=== PATIENT | male | born 1965 | race Caucasian/White ===

== ENCOUNTER → 2018-04-07 | Outpatient (CLI) | payer OTHER ==
[~2018-04-07] MED LIST: ASPIR 8181 M1 PO; ASPIRIN325 PO; CRESTOR10 MG PO; CRESTOR40 MG PO; LIPITOR 20 MG T20 M1 PO; LISINOPRIL10 MG PO; MEDROLDOSEPACK PO; MOBIC15 MG PO; PLAVIX 75 MG TA75 M1 PO; ZETIA10 MG PO
--- NOTE | 2018-04-14 12:26 | TST ---
[place] [address] TREADMILL STRESS TEST Name: ZOILA SIMPSON Room: [facility]#: [id number] Admission: 04/07/18 Attend Phys: Caleb Ro MD Discharge: Date of : 61 Date of Service: 04/07/18 1611 Report #: [id number] THIS REPORT FOR: //name// CC: Paulino Ro MD [facility] DATE OF SERVICE: 04/07/2018 Resting 12-lead electrocardiogram demonstrates a sinus rhythm and is within normal limits. The patient exercised for 12 minutes and 58 seconds according to a standard Tanvir protocol, achieving 13.84 METs. He stopped because of shortness of breath and fatigue, but denied chest pain. Resting heart rate was 67 with a peak of 167, 100% of the age predicted maximum. Blood pressure was 130/83 at rest, increasing to 202/73, peak exercise and following to 147/80 during the post-exercise phase. There were no ischemic ST-T alterations noted during or post-exercise. There were occasional PVCs with rare ventricular couplet; there were no examples of ventricular tachycardia and no significant supraventricular arrhythmias. IMPRESSION: 1. Negative treadmill exercise test for provocation of ischemic ST-T alterations. 2. No chest pain provoked by exertion. 3. Appropriate heart rate and systolic blood pressure responses to exercise. 4. Occasional premature ventricular contractions with a rare ventricular couplet during exercise; there were no examples of ventricular tachycardia. 5. Excellent level of fitness for age. <ELECTRONICALLY SIGNED> By: Zhou Gomez MD, FACC 04/14/18 1226 1611 1917 Zhou Gomez MD, FACC /nt
== END ==
LOC: M.ULTRA 12-30 16:45 → M.CRD 12:16
DX: I25.10 Atherosclerotic heart disease of native coronary artery without angina pectoris (principal); I65.22 Occlusion and stenosis of left carotid artery

== ENCOUNTER → 2018-05-24 | Outpatient (CLI) | payer OTHER ==
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
== END ==
LOC: M.PC 08:21
DX: M54.5 Low back pain (principal); M54.2 Cervicalgia

== ENCOUNTER → 2018-06-14 | Outpatient (CLI) | payer OTHER ==
--- NOTE | ~2018-06-14 | PAINCON ---
[address] [address] PAIN MANAGEMENT CONSULTATION Name: ZOILA SIMPSON Room: [facility].#: [id number] Admission: 06/14/18 Attend Phys: Myles Corley MD Discharge: Date of : 61 Report #: [id number] THIS REPORT FOR: //name// CC: Paulino Corley DATE OF SERVICE: 06/14/2018 FOLLOWUP HISTORY: The patient is a 52-year-old gentleman who has been seen in the pain clinic because of cervical radiculopathy as well as lumbar radiculopathy. At our initial visit, his was provided with a Medrol Dosepak. He was having pain and discomfort in his shoulders with pain that radiates down into his hands and into the middle, ring and small finger. He has noticed an improvement in that pain and discomfort since the use of the Medrol Dosepak. He did not have any problems with it. He is having left numbness and tingling. His arms are not falling asleep as often as they were. At this juncture, he feels that the pain is most problematic is no longer that in his neck, but that in his low back area with pain that radiating down the posterior portion of his legs. It is more problematic on the right than left. He rates his pain as a 4/10. He does use ibuprofen p.r.n. The patient was given a script for Mobic. He declined its use secondary to his nonsteroidal anti-inflammatory properties and the possibility of cardiac events. He does have a stent in place. He has a family history of cardiac problems. He has returned today and would like to proceed with an epidural in the low back area because of the pain. ALLERGIES: No known drug allergies. MEDICATIONS: Aspirin 81 mg, Zetia 10 mg, lisinopril 10 mg, Crestor 40 mg. PAIN CLINIC ASSESSMENT/PQRS: 1. History of osteoarthritis. The patient is not being treated for osteoarthritis or rheumatoid arthritis. 2. Height 6 feet, weight 182 pounds, BMI is 25. 3. Vital Signs: Blood pressure 149/79, heart rate 84, respiratory rate 18, room air saturation 98%, and temperature 98.2. 4. Pain intensity 10/26. 5. Fall risk. The patient has not fallen in the last 3 months. 6. Blood thinner. The patient is not on a blood thinning medication. 7. Hypertension. The patient is being treated for hypertension. 8. Opioid use. The patient denies chronic use of opioid medications at this juncture, low for opioid use. 9. Functional assessment tool 63/70. 10. Recreational drug use. The patient denies use of recreational drugs. 11. Tobacco: The patient denies use of tobacco. 12. Alcohol: The patient denies frequent [place] [address] PAIN MANAGEMENT CONSULTATION Name: ZOILA SIMPSON Room: [facility]#: [id number] Admission: 06/14/18 Attend Phys: Myles Corley MD Discharge: Date of : 61 Report #: [id number] PHYSICAL EXAMINATION: GENERAL: The patient is a well-developed, well-nourished white male. Appears his stated age. He is alert and oriented x 3. His affect is appropriate. Speech is fluent. HEENT: Normocephalic, atraumatic. Extraocular eye muscles intact. Sclerae nonicteric. Mucous membranes are moist. NECK: Without adenopathy or JVD. HEART: Regular rate. S1, S2. LUNGS: Clear to auscultation without rhonchi or rales. ABDOMEN: Nontender. Bowel sounds present. EXTREMITIES: Upper extremity muscle strength is judged to be 5/5 for the major muscle groups in the upper extremity. The patient states that he is having less numbness and tingling down in his arms and less discomfort in his fingers. The patient has pain and discomfort in lower back area with pain radiating down to L5-S1 dermatomal distribution, more so on the right than left. He notes some tingling on occasion in his right foot. IMPRESSION: 1. Lumbar radiculopathy at L5-S1 dermatomal distribution. 2. Cervical radiculopathy, improved after an oral Medrol Dosepak. 3. Coronary artery disease, status post stent placement. 4. Hypercholesterolemia. 5. Hypertension. RECOMMENDATIONS: We discussed treatment options with the patient. Risks and benefits of an injection in the lumbar area were discussed. Possible complications, which could include but are not limited to infection, increased muscle soreness, headache, bleeding, worsening of pain, paralysis were reviewed. The patient elects to proceed. PROCEDURE NOTE: The patient was taken to the procedure area. He was assisted in getting on the examination table. A pillow was placed under his abdomen to bolster improve positioning. Fluoroscopy used. The anterior, posterior as well as lateral viewing were implemented. The patient's back had been sterilely prepped with a Betadine solution. A 0.25% bupivacaine was infiltrated at the right paraspinous position at L5-S1. A 17-gauge Tuohy with loss of resistance technique was used to gain access to the epidural space. There was no CSF, heme or paresthesia. Total of 80 mg Depo-Medrol, 40 mg triamcinolone and 2 mL of 0.25% bupivacaine were injected. The patient tolerated the procedure well. There were no complications. A total of 8 seconds fluoroscopy time was used. The patient's pain decreased to 0 at [place] [address] PAIN MANAGEMENT CONSULTATION Name: ZOILA SIMPSON Room: [facility]#: [id number] Admission: 06/14/18 Attend Phys: Myles Corley MD Discharge: Date of : 61 Report #: [id number] He will follow up in the future as needed. We would like to thank you for letting us participate in his care. We hope he continues to improve. By: [id number]. Luther Corley MD /nt
== END | disposition home or self-care (01) ==
LOC: M.PC 04:52
DX: M54.16 Radiculopathy, lumbar region (principal); M54.12 Radiculopathy, cervical region; I10 Essential (primary) hypertension; I25.10 Atherosclerotic heart disease of native coronary artery without angina pectoris; E78.00 Pure hypercholesterolemia, unspecified; Z95.5 Presence of coronary angioplasty implant and graft; Z79.82 Long term (current) use of aspirin; Z79.899 Other long term (current) drug therapy

== ENCOUNTER → 2018-08-02 | Outpatient (CLI) | payer OTHER | END | disposition home or self-care (01) | LOC: M.PC 07-21 08:10 | DX: M54.16 Radiculopathy, lumbar region (principal); G89.29 Other chronic pain; I10 Essential (primary) hypertension; E78.00 Pure hypercholesterolemia, unspecified; I25.10 Atherosclerotic heart disease of native coronary artery without angina pectoris; Z95.5 Presence of coronary angioplasty implant and graft; Z98.890 Other specified postprocedural states; Z79.899 Other long term (current) drug therapy; Z79.82 Long term (current) use of aspirin ==

== ENCOUNTER → 2018-10-06 | Outpatient (CLI) | payer OTHER ==
[~2018-10-06] MED LIST changes: +IBUPROFEN 800800 M1 PO; +TYLENOL325 MG PO
--- NOTE | ~2018-10-06 | PAINCON ---
[address] [address] PAIN MANAGEMENT CONSULTATION Name: ZOILA SIMPSON Room: [facility].#: [id number] Admission: 10/06/18 Attend Phys: Myles Corley MD Discharge: Date of : 61 Report #: [id number] THIS REPORT FOR: //name// CC: Paulino Corley DATE OF SERVICE: 10/06/2018 CHIEF COMPLAINT: Pain in the lumbar area as well as cervical area. HISTORY: The patient is a 52-year-old gentleman who has returned to the Pain Clinic with complaints primarily of lumbar pain. He is experiencing pain that is radiating down into the right low back area and ____ right L5-S1 dermatomal distribution. Notes that the pain is achy in his right leg. Notes that if he twists there is an increase in pain. States that the pain can be quite problematic and cause want to "go to the ground." Rates it as 7-8/10. Denies any trauma. As noted improvement in his pain in the past with epidural steroid injections and has returned today with the desire to undergo an epidural steroid injection to help with the pain, which he is experiencing in his low back. Continues to have some bilateral discomfort in his hands with tingling. ALLERGIES: No known drug allergies. CURRENT MEDICATIONS: Aspirin 81 mg, Zetia 10 mg, lisinopril 10 mg, Crestor 40 mg. PAIN CLINIC ASSESSMENT/PQRS: 1. History of osteoarthritis. The patient is not being treated for osteoarthritis or rheumatoid arthritis. 2. Height 6 feet, weight 180 pounds, BMI is 24. 3. Vital signs: Blood pressure 130/74, heart rate 78, respiratory rate 16, room air saturation 98%, temperature 98.1. 4. Pain intensity 10. 5. Fall history: The patient has not fallen in the last 3 months. 6. Blood thinner. The patient is not on a blood thinning medication. 7. Opioids. The patient denies use of opioid medication on a regular basis. 8. Functional assessment tool 63/70. 9. Recreational drug use. The patient denies use of recreational drugs. 10. Tobacco: The patient denies use of tobacco. 11. Alcohol: The patient denies frequent use of alcoholic beverages. PHYSICAL EXAMINATION: GENERAL: The patient is a well-developed, well-nourished white male. Appears his stated age. He is alert and oriented x 3. Affect is appropriate[place] [address] PAIN MANAGEMENT CONSULTATION Name: ZOILA SIMPSON Room: [facility]#: [id number] Admission: 10/06/18 Attend Phys: Myles Corley MD Discharge: Date of : 61 Report #: [id number] HEENT: Normocephalic, atraumatic. Extraocular eye muscles intact. Sclerae nonicteric. Mucous membranes moist. NECK: Without adenopathy or JVD. The patient does complain of some pain and discomfort down into his hands with tingling bilaterally. ABDOMEN: Nontender. Bowel sounds present. MUSCULOSKELETAL: Upper extremity muscle strength judged to be 5-/5 for the major muscle groups in the upper extremity. Pain and discomfort in the lower portion of his back with pain that is radiating down into the right L5-S1 dermatomal distribution. Has pain on both sides, right side is most problematic today with numbness, tingling and sensory changes in lower extremity, some tingling in his foot. IMPRESSION: 1. Lumbar radiculopathy, L5-S1 dermatomal distribution on the right. 2. Cervical radiculopathy improves in the past with a Medrol Dosepak. 3. Bilateral tingling in his hands. 4. Coronary artery disease, status post stent placement. 5. Hypercholesterolemia. 6. Hypertension. RECOMMENDATIONS: We discussed treatment options with the patient. Risks and benefits of an epidural steroid injection in the lumbar area were again discussed. They include, but are not limited to infection, worsening pain, no improvement in pain, nerve damage, spinal headache and the patient elects to proceed. A script for meloxicam has been written for the patient. He will take 1 tablet p.o. daily. A refill has been provided. The patient elects to proceed with an epidural steroid injection. He was then assisted in getting on the examination table. His back was sterilely prepped with a Betadine solution. Fluoroscopy using anterior, posterior as well as lateral view and more implemented. Pillow was placed under the abdomen to improve positioning. A Betadine solution was allowed to dry and the patient's back. A 0.25% bupivacaine was infiltrated at the L5-S1 dermatomal level on the right paramedian approach. After this area had been infiltrated with 0.25% bupivacaine and 17-gauge Tuohy with loss of resistance technique was used to gain access to the epidural space. There was no CSF, heme or paresthesia. Total of 80 mg Depo-Medrol, 40 mg triamcinolone and 2 mL of 0.25% bupivacaine was injected. A total of 5 seconds fluoroscopy time was used. The patient's pain decreased to 0 at the time of his departure. He will follow up in the future as needed. We would like to thank you for letting us participate in his care. We hope he continues to improve. By: [id number]. Luther Corley MD /sandor
== END | disposition home or self-care (01) ==
LOC: M.PC 09-06 12:30
DX: M54.16 Radiculopathy, lumbar region (principal); G89.29 Other chronic pain; M54.12 Radiculopathy, cervical region; I10 Essential (primary) hypertension; I25.10 Atherosclerotic heart disease of native coronary artery without angina pectoris; E78.00 Pure hypercholesterolemia, unspecified; Z79.82 Long term (current) use of aspirin; Z79.899 Other long term (current) drug therapy

== ENCOUNTER → 2019-01-17 | Outpatient (CLI) | payer OTHER ==
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
== END | disposition home or self-care (01) ==
LOC: M.PC 05:08
DX: M54.16 Radiculopathy, lumbar region (principal); G89.29 Other chronic pain; M54.12 Radiculopathy, cervical region; I10 Essential (primary) hypertension; I25.10 Atherosclerotic heart disease of native coronary artery without angina pectoris; E78.00 Pure hypercholesterolemia, unspecified; Z98.890 Other specified postprocedural states; Z79.899 Other long term (current) drug therapy; Z79.82 Long term (current) use of aspirin

== ENCOUNTER → 2019-04-04 | Outpatient (CLI) | payer OTHER ==
--- NOTE | ~2019-04-04 | PAINCON ---
[address] [address] PAIN MANAGEMENT CONSULTATION Name: ZOILA SIMPSON Room: [facility].[place].#: [id number] Admission: 04/04/19 Attend Phys: Myles Corley MD Discharge: Date of : 61 Report #: [id number] THIS REPORT FOR: //name// CC: Paulino Corley DATE OF SERVICE: 04/04/2019 CHIEF COMPLAINT: Here for another epidural steroid injection. HISTORY: The patient is a 53-year-old gentleman, who has been seen in the pain clinic because of lumbar radiculopathy. He has history of both back and neck pain. He has noted worsening of pain in the low back area. He has been having pain for a number of years. At this juncture, he has noticed a worsening of pain, which has reoccurred in the low back area. It continues to radiate down into the lateral portion of his legs to his feet. He notes that the right side is more problematic than the left. He describes the pain as constant and has noted a flare up in the pain over the last few weeks. He rates his pain as a 5/10. He continues to use ibuprofen on a p.r.n. basis. He notes his pain is exacerbated with walking, sitting, standing as well as other activities. He noticed that use of heat and rest can be beneficial as well. He has returned to the pain clinic today with a hope of undergoing another epidural steroid injection. He has gleaned greater than 75% benefit after the injections in the past. 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 CURRENT MEDICATIONS: Aspirin 81 mg, Zetia 10 mg, lisinopril 10 mg, Crestor 40 mg, ibuprofen 800 mg, and Tylenol p.r.n. ALLERGIES: No known drug allergies. PAIN CLINIC ASSESSMENT AND PQRS: 1. The patient is not being treated for osteoarthritis. He is not being treated for rheumatoid arthritis. 2. Pain intensity is 5/10. 3. Fall history: The patient has not fallen in the last 3 months. 4. Blood thinner. The patient is not on a blood thinning medication. 5. Opioids. The patient is not on a regular opioid regimen. 6. Functional assessment tool, /70. 7. Recreational drug use. The patient denies. 8. Tobacco: The patient denies use of tobacco. 9. Alcohol. The patient denies frequent use of alcoholic beverages. PHYSICAL EXAMINATION: GENERAL: The patient is a well-developed, well-nourished white male. He appears his stated age. He is alert and oriented x 3[place] [address] PAIN MANAGEMENT CONSULTATION Name: ZOILA SIMPSON [id number] Admission: 04/04/19 Attend Phys: Myles Corley MD Discharge: Date of : 61 Report #: [id number] appropriate. Speech is fluent. Height is 6 feet 0 inches, weight is 182 pounds, and BMI is 25. VITAL SIGNS: Blood pressure is 117/72, heart rate is 81, respiratory rate is 16, room air saturation is 98%, and temperature is 98.7. HEENT: Normocephalic, atraumatic. Extraocular eye muscles intact. Sclerae nonicteric. Mucous membranes are moist. NECK: Without adenopathy or JVD. The patient does have pain and discomfort in his neck area. Also, has pain, which radiates down and cause some tingling in his fingers. He notes that the pain is most problematic in the lower portion of his back with pain that is radiating down into the left and right side in the right L5-S1 area. HEART: Regular rate. LUNGS: Clear to auscultation. ABDOMEN: Nontender. MUSCULOSKELETAL: Without significant scoliosis, kyphosis, or lordosis. The patient has a positive straight leg raise. IMPRESSION: 1. Lumbar radiculopathy, L5-S1, most problematic on the right. 2. Cervical radiculopathy, improved in the past with use of Medrol Dosepak. 3. Bilateral tingling in his hands, improved with physical therapy. 4. Coronary artery disease. The patient is status post stent placement. 5. Hypercholesterolemia. 6. Hypertension. RECOMMENDATIONS: We have discussed treatment options with the patient. Risks and benefits of an epidural steroid injection were discussed. They include but are not limited to infection, worsening pain, no improvement in pain and the patient elects to proceed. PROCEDURE NOTE: The patient was taken to the procedure area. He was then assisted in getting on the examination table. His back was sterilely prepped with a Betadine solution. Fluoroscopy using anterior, posterior as well as lateral viewing were implemented. The patient's back was sterilely prepped and infiltrated at the L5-S1 areas using a midline approach with a 25-gauge needle and infusion of 0.25% bupivacaine. A 17-gauge Tuohy at the L5-S1 area using a right paramedian approach was undertaken. There was no CSF, heme, or paresthesia. A total of 80 mg Depo-Medrol, 40 mg of triamcinolone, and 2 mL of 0.25% had been injected. The patient tolerated the procedure well. A total of 80 mg Depo-Medrol and 40 mg of triamcinolone was injected without complications. The patient was then taken to the procedure area. He remained in the procedure area for an appropriate amount of time. He will follow up in the future as needed. A total of 6 [place] [address] PAIN MANAGEMENT CONSULTATION Name: ZOILA SIMPSON [facility] [id number] Admission: 04/04/19 Attend Phys: Myles Corley MD Discharge: Date of : 61 Report #: [id number] We would like to thank you for letting us to participate in his care. We hope he continues to improve. By: [id number]. Luther Corley MD /VAMSI
== END | disposition home or self-care (01) ==
LOC: M.PC 05:11
DX: M54.16 Radiculopathy, lumbar region (principal); M54.12 Radiculopathy, cervical region; G89.29 Other chronic pain; I10 Essential (primary) hypertension; E78.00 Pure hypercholesterolemia, unspecified; I25.10 Atherosclerotic heart disease of native coronary artery without angina pectoris; Z79.82 Long term (current) use of aspirin; Z79.899 Other long term (current) drug therapy

== ENCOUNTER → 2019-05-23 | Outpatient (CLI) | payer OTHER ==
[~2019-05-23] MED LIST changes: +NEURONTIN 300300 M1 PO
--- NOTE | 2019-05-29 13:25 | PAINCON ---
[address] [address] PAIN MANAGEMENT CONSULTATION Name: ZOILA SIMPSON Room: [facility]..#: [id number] Admission: 05/23/19 Attend Phys: Myles Corley MD Discharge: Date of : 61 Report #: [id number] THIS REPORT FOR: //name// CC: Paulino Corley DATE OF SERVICE: 05/23/2019 CHIEF COMPLAINT: "Return of back pain, but it is going down my left leg today." HISTORY: The patient is a 53-year-old gentleman who has been seen in the pain clinic because of lumbar radiculopathy. He has been experiencing pain, which radiated down into his right leg. He has noted benefit from the epidural steroid injections. He has noticed over the last few weeks pain, which has been more problematic. It is radiating down the posterior portion of his left leg and down into the calf. He denies any new trauma. He has been using nonsteroidal anti-inflammatory medications p.r.n. He rates his pain as a 7-8/10. As you may recall, he does work hard. He works in construction. He received about 60% benefit after the last injection. ALLERGIES: No known drug allergies. CURRENT MEDICATIONS: Aspirin 81 mg, Zetia 10 mg, lisinopril 10 mg, Crestor 40 mg, ibuprofen 800 mg and Tylenol p.r.n. PAIN CLINIC ASSESSMENT AND PQRS: 1. The patient is not being treated for osteoarthritis or rheumatoid arthritis. 2. Height 6 feet 0, weight 184 pounds, BMI is 25.0. 3. Vital Signs: Blood pressure 144/90, heart rate 80, respiratory rate 16, room air saturation 96%, and temperature 98.3. 4. Pain intensity is 7-8/10. 5. Fall history: The patient has not fallen in the last 3 months. 6. Blood thinner. The patient is not on a blood thinning medication. 7. Opioids. The patient is not on her opioid regimen. 8. Functional assessment tool 63/70. 9. Recreational drug use: The patient denies. 10. Tobacco: The patient denies. 11. Alcohol. The patient denies frequent use of alcoholic beverages. PHYSICAL EXAMINATION: GENERAL: The patient is a well-developed, well-nourished white male. Appears his stated age. He is alert and oriented x 3. His affect is appropriate. Speech is fluent. HEENT: Normocephalic, atraumatic. Extraocular eye muscles intact. Sclerae nonicteric. Mucous membranes are moist. The patient in the past has had some tingling down into his fingers. [place] [address] PAIN MANAGEMENT CONSULTATION Name: ZOILA SIMPSON Room: [facility]#: [id number] Admission: 05/23/19 Attend Phys: Myles Corley MD Discharge: Date of : 61 Report #: [id number] NECK: Without adenopathy or JVD. HEART: Regular rate. LUNGS: Clear to auscultation. ABDOMEN: Nontender. MUSCULOSKELETAL: Without significant scoliosis, kyphosis or lordosis. The patient has pain that is radiating down the lower portion of his back in the L5-S1 dermatomal distribution and a positive straight leg on the left. IMPRESSION: 1. Lumbar radiculopathy with L5-S1 with pain on the left side today. 2. History of cervical radiculopathy, improved in the past with use of Medrol Dosepak. 3. Bilateral tingling in his hands improved with physical therapy. 4. Coronary artery disease. The patient is status post stent placement. 5. Hypercholesterolemia. 6. Hypertension. RECOMMENDATIONS: We discussed treatment options with the patient. Risks and benefits of an epidural steroid injection were discussed. Possible complications of the procedure, which could include but are not limited to infection, worsening pain, increased pain, the patient elects to proceed. PROCEDURE NOTE: The patient was taken to the procedure area. He was then assisted in getting on the examination table. His back was sterilely prepped with a Betadine solution. A 0.25% bupivacaine was infiltrated. A total of 80 mg Depo-Medrol, 40 mg triamcinolone and 2 mL of 0.25% bupivacaine was injected. The patient tolerated the procedure well. There were no complications. He will follow up in the future as needed. The injection was at L5-S1 through a midline approach. We would like to thank you for letting us participate in his care. We hope he continues to improve. <ELECTRONICALLY SIGNED> By: Myles Corley MD 05/29/19 1325 1409 1725N. Luther Corley MD /sandor
== END | disposition home or self-care (01) ==
LOC: M.PC 05:04
DX: M54.16 Radiculopathy, lumbar region (principal); G89.29 Other chronic pain; I10 Essential (primary) hypertension; E78.00 Pure hypercholesterolemia, unspecified; I25.10 Atherosclerotic heart disease of native coronary artery without angina pectoris; Z98.890 Other specified postprocedural states; Z79.899 Other long term (current) drug therapy; Z79.82 Long term (current) use of aspirin

== ENCOUNTER → 2019-09-14 | Outpatient (CLI) | payer OTHER ==
--- NOTE | 2019-10-03 08:57 | PAINCON ---
[address] [address] PAIN MANAGEMENT CONSULTATION Name: ZOILA SIMPSON Room: [facility].#: [id number] Admission: 09/14/19 Attend Phys: Myles Corley MD Discharge: Date of : 61 Report #: [id number] THIS REPORT FOR: //name// cc: Paulino Rosas MD, Anthony MD ~ THIS REPORT FOR: //name// CC: Paulino Corley DATE OF SERVICE: 09/14/2019 PRIMARY PHYSICIAN: Paulino Rosas MD CHIEF COMPLAINT: Return of pain down in the left leg. HISTORY: The patient is a 53-year-old gentleman who has been followed in the pain clinic. As you may recall, he suffers from lumbar radiculopathy. He has been experiencing pain that radiates down into his right leg. Epidural steroid injections have been beneficial. He returns today with an increase pain in the low back area. He rates his pain as 7/10. He would like to proceed with another epidural steroid injection given that they have been beneficial in the past. Left side is most problematic. He also continues with gabapentin and finds that this medication is helpful as well. Does use ibuprofen on occasion. He gleaned greater than 50% improvement from the injection after the last time. ALLERGIES: No known drug allergies. CURRENT MEDICATIONS: Aspirin 81 mg, Zetia 10 mg, lisinopril 10 mg, Crestor 40 mg, ibuprofen 800 mg, Tylenol p.r.n. PAIN CLINIC ASSESSMENT/PQRS: 1. The patient is not being treated for osteoarthritis or rheumatoid arthritis. 2. Height 6 feet 0, weight 184 pounds, BMI is 25.0. 3. Vital signs: Blood pressure 138/83, heart rate 75, respiratory rate 16, room air saturation 99%, temperature is 98.3. 4. Pain intensity 7/10. 5. Fall history: The patient has not fallen in the last 3 months. 6. Blood thinner: The patient is not on a blood thinning medication. 7. Opioids: The patient receives medications from one source. 8. Functional assessment tool 63/70. 9. Recreational drug use: The patient denies. 10. Tobacco: The patient denies. 11. Alcohol: The patient denies frequent use [place] [address] PAIN MANAGEMENT CONSULTATION Name: ZOILA SIMPSON Room: [facility]#: [id number] Admission: 09/14/19 Attend Phys: Myles Corley MD Discharge: Date of : 61 Report #: [id number] PHYSICAL EXAMINATION: GENERAL: The patient is a well-developed, well-nourished white male. He appears his stated age. He is alert and oriented x 3. His affect is appropriate. Speech is fluent. HEENT: Normocephalic, atraumatic. Extraocular eye muscles intact. Sclerae nonicteric. Mucous membranes are moist. NECK: Without adenopathy or JVD. HEART: Regular rate. LUNGS: Clear to auscultation. ABDOMEN: Nontender. MUSCULOSKELETAL: Without significant scoliosis, kyphosis or lordosis. The patient has pain and discomfort that is radiating down the L5-S1 dermatomal distribution with more problems on the left. Positive straight leg raise. The patient does have psoriatic arthritic lesions in the back on his skin. These generally improved with the injection. IMPRESSION: 1. Lumbar radiculopathy at L5-S1 on the left side. 2. History of cervical radiculopathy, improved in the past with use of Medrol Dosepak. 3. Bilateral tingling in his hands improved with physical therapy. 4. Coronary artery disease, status post stent placement. 5. Hypercholesterolemia. 6. Hypertension. 7. Psoriasis. RECOMMENDATIONS: We discussed treatment options with the patient. At this juncture, we will continue with the injections. The risk and benefits of an epidural steroid injection were again discussed. They include but are not limited to infection, worsening pain, no improvement in pain, nerve damage and bleeding and the patient elects to proceed. PROCEDURE NOTE: The patient was taken to the procedure area. He was then assisted in getting on examination table. His back was sterilely prepped with a Betadine solution. A 0.25% bupivacaine was infiltrated at the L5-S1 area. There was some evidence of psoriasis in the back area. We did not inject through any of the lesions. A 0.25% bupivacaine was infiltrated at the L5-S1 area. A 17-gauge Tuohy with loss of resistance technique was then followed up and injected through this area that had been anesthetized with 0.25% bupivacaine. A total of 80 mg Depo-Medrol, 40 mg triamcinolone, and 2 mL of 0.25% bupivacaine was injected. The patient tolerated the procedure well. There were no complications. Approximately 9 seconds fluoroscopy time was used. The patient will continue with gabapentin. A script for gabapentin has been rewritten. We would like to thank you for letting us participate in his care[place] [address] PAIN MANAGEMENT CONSULTATION Name: ZOILA SIMPSON Room: [facility].#: [id number] Admission: 09/14/19 Attend Phys: Myles Corley MD Discharge: Date of : 61 Report #: [id number] continues to improve. Thank you very much for proofreading that dictation. <ELECTRONICALLY SIGNED> By: Myles Corley MD 10/03/19 0857 2319 [id number] Corley MD /nt
== END | disposition home or self-care (01) ==
LOC: M.PC 10:20
DX: M54.16 Radiculopathy, lumbar region (principal); G89.29 Other chronic pain; I10 Essential (primary) hypertension; E78.00 Pure hypercholesterolemia, unspecified; I25.10 Atherosclerotic heart disease of native coronary artery without angina pectoris; Z98.890 Other specified postprocedural states; Z79.899 Other long term (current) drug therapy; Z79.82 Long term (current) use of aspirin

== ENCOUNTER → 2019-12-21 | Outpatient (CLI) | payer OTHER ==
--- NOTE | 2020-01-25 15:40 | PAINCON ---
[address] [address] PAIN MANAGEMENT CONSULTATION Name: ZOILA SIMPSON Room: [facility]#: [id number] Admission: 12/21/19 Attend Phys: Myles Corley MD Discharge: Date of : 61 Report #: [id number] THIS REPORT FOR: //name// cc: Paulino Rosas MD, Anthony MD ~ THIS REPORT FOR: //name// CC: Paulino Corley DATE OF SERVICE: 12/21/2019 CHIEF COMPLAINT: Return of low back pain down into both legs. HISTORY: The patient is a 54-year-old gentleman who has been followed in the pain clinic because of lumbar radiculopathy. He has noticed a worsening of his pain in the last few weeks. Notes that he is having pain that is radiating down into his legs bilaterally, left greater than right. It was the right side, which is most problematic in the past. He does note some numbness and tingling down into his left foot. He has found epidural steroid injections beneficial in the past. He has returned today seeking another injection to help quell his pain and discomfort. Notes that walking, sitting and standing are problematic. Activities of daily living are problematic. He has had no complication from these injections in the past. He has gleaned greater than 50% improvement with the injections. ALLERGIES: No known drug allergies. CURRENT MEDICATIONS: Aspirin 81 mg, Zetia 10 mg, lisinopril 10 mg, Crestor 40 mg, ibuprofen 800 mg, Tylenol p.r.n. PAIN CLINIC ASSESSMENT/PQRS: 1. The patient is not being treated for osteoarthritis or rheumatoid arthritis. 2. Height 6 feet 0, weight 182 pounds, BMI is 24. 3. Vital signs: Blood pressure 142/79, heart rate 73, respiratory rate 16, room air saturation 98%, temperature 98.6. 4. Pain score 7/10. 5. Fall history: The patient has not fallen in the last 3 months. 6. Blood thinner. The patient is not on a blood thinning medication. 7. Opioids. The patient receives medication from one source. 8. Functional assessment tool 63/70. 9. Recreational drug use. The patient denies. 10. Tobacco: The patient denies. 11. Alcohol: The patient denies frequent use of alcoholic beverages. PHYSICAL EXAMINATION: [place] [address] PAIN MANAGEMENT CONSULTATION Name: CALVINZOILA Room: [facility]#: [id number] Admission: 12/21/19 Attend Phys: Myles Corley MD Discharge: Date of : 61 Report #: [id number] GENERAL: The patient is a well-developed, well-nourished white male. He appears his stated age. He is alert and oriented x 3. His affect is appropriate. Speech is fluent. HEENT: Normocephalic, atraumatic. Extraocular eye muscles intact. Mucous membranes are moist. The patient is wearing a mask. NECK: Without adenopathy or JVD. HEART: Regular rate. LUNGS: Clear to auscultation. ABDOMEN: Nontender. MUSCULOSKELETAL: The patient without significant scoliosis, kyphosis or lordosis. The patient has pain and discomfort that is radiating down the L5-S1 dermatomal distribution of his left leg. Positive straight leg raise. The patient does have some psoriatic arthritis with lesions on his low back area. These generally improved with injections. IMPRESSION: 1. Lumbar radiculopathy at L5-S1 on the left side. 2. History of cervical radiculopathy, improved in the past with use of Medrol Dosepak. 3. Bilateral tingling in his hands improved with physical therapy. 4. Coronary artery disease, status post stent placement. 5. Hypercholesterolemia. 6. Hypertension. 7. Psoriasis. RECOMMENDATIONS: We discussed treatment options with the patient. Risks and benefits of an epidural steroid injection were discussed. Possible complications of the procedure, which could include but are not limited to infection, worsening pain, no improvement in pain, nerve damage, bleeding, and the patient elects to proceed. We reminded the patient that a pandemic with COVID-19 is present. We explained that steroid medications can lower ones immunity. Should he become infected after to have an injection. He may have a more difficult time recovering from the virus given the use of steroids. He is aware and elects to proceed. PROCEDURE NOTE: The patient was taken to the procedure area. He was then assisted in getting on examination table. A pillow was placed under his abdomen to bolster and improve positioning. Fluoroscopy using anterior, posterior as well as lateral viewing were used to identify the appropriate location. The L5-S1 area had been sterilely prepped. A 0.25% bupivacaine was infiltrated using a 25-gauge needle. After the area had been anesthetized, a 17-gauge Tuohy with loss of resistance technique, was used to gain access to the epidural space. There was no CSF, heme or paresthesia. Total of 80 mg Depo-Medrol, 40 mg of triamcinolone and 2 mL of 0.25% bupivacaine was injected. The patient tolerated the procedure well. He will follow [place] [address] PAIN MANAGEMENT CONSULTATION Name: ZOILA SIMPSON Room: [facility]#: [id number] Admission: 12/21/19 Attend Phys: Myles Corley MD Discharge: Date of : 61 Report #: [id number] We would like to thank you for letting us to participate in his care. We hope he continues to improve. <ELECTRONICALLY SIGNED> By: Myles Corley MD 01/25/20 [id number] [id number]. Luther Corley MD /[facility]
== END | disposition home or self-care (01) ==
LOC: M.PC 03:55
PROVIDERS: ATTEND Anesthesiology Pain Medicine
DX: M54.16 Radiculopathy, lumbar region (principal); G89.29 Other chronic pain; M54.5 Low back pain; I10 Essential (primary) hypertension; E78.00 Pure hypercholesterolemia, unspecified; Z98.890 Other specified postprocedural states; Z79.899 Other long term (current) drug therapy